=== PATIENT | female | born 1995 | race Hispanic/Latino ===

== ENCOUNTER 2017-09-08 21:46 | Emergency (ER) | payer MEDICAID, OTHER ==
[2017-09-08 21:47] VITALS: BMI 27.4
[2017-09-08 22:07] VITALS: BP 104/63; PULSE 131; TEMP 102.5; O2SAT 97
[2017-09-08] MEDS ORDERED: Promethazine/Cod 6.25mg-10mg/5ml Syr UD PO STA (23:13)
--- NOTE | 2017-09-08 23:26 | C.PDOC ---
History Of Present Illness 21 year old female with PMHx of asthma presents to the ED c/o productive cough, chest discomfort with deep breathing for the past week. Patient also notice fever for the past day. Patient reports she has been using her nebulizer at home with minimum relief. Patient denies rash, nausea, vomit, diarrhea, recent travel, sick contacts. Time Seen by Provider: 09/08/17 22:08 Chief Complaint (Nursing): Flu-like Symptoms History Per: Patient History/Exam Limitations: no limitations Onset/Duration Of Symptoms: Days Current Symptoms Are (Timing): Still Present Location Of Pain: Throat Sick Contacts (Context): None Associated Symptoms: Fever, Sore Throat, Cough, Sputum Ear Symptoms: Bilateral: None Recent travel outside of the [place]: No Additional History Per: Patient Past Medical History Reviewed: Historical Data, Nursing Documentation, Vital Signs Vital Signs: Last Vital Signs Temp 102.5 F H 09/08/17 22:03 Pulse 131 H 09/08/17 22:03 Resp 20 09/08/17 23:58 BP 104/63 09/08/17 22:03 Pulse Ox 97 09/08/17 23:49 - Medical History PMH: Asthma Surgical History: No Surg Hx - [facility] Procedures DELIVERY OF PRODUCTS OF CONCEPTION, EXTERNAL APPROACH (11/21/15) REPAIR PERINEUM SKIN, EXTERNAL APPROACH (11/21/15) Family History: States: Unknown Family Hx - Social History Hx Alcohol Use: No Hx Substance Use: No - Immunization History Hx Tetanus Toxoid Vaccination: No Hx Influenza Vaccination: No Hx Pneumococcal Vaccination: No Review Of Systems Constitutional: Positive for: Fever. Negative for: Chills ENT: Positive for: Nose Congestion, Throat Pain. Negative for: Nose Discharge Cardiovascular: Positive for: Chest Pain Respiratory: Positive for: Cough, Shortness of Breath Gastrointestinal: Negative for: Nausea, Vomiting Skin: Negative for: Rash Physical Exam - Physical Exam Appears: Non-toxic, No Acute Distress Skin: Normal Color, Warm, Dry Head: Atraumatic, Normacephalic Eye(s): bilateral: Normal Inspection, PERRL Ear(s): Bilateral: Normal Nose: No Discharge Oral Mucosa: Moist Throat: Normal, No Erythema, No Exudate Neck: Normal ROM, Supple Chest: Symmetrical, No Tenderness Cardiovascular: Rhythm Regular, No Murmur Respiratory: Normal Breath Sounds, No Rales, No Rhonchi, No Wheezing Extremity: Normal ROM Neurological/Psych: Oriented x3, Normal Motor, Normal Sensation Gait: Steady ED Course And Treatment O2 Sat by Pulse Oximetry: 97 (ON RA) Pulse Ox Interpretation: Normal - Radiology CXR: Interpreted by Me CXR Interpretation: Yes: No Acute Disease. No: Infiltrates Progress Note: Plan: - CXR. - Motrin 600 mg PO. Pt in no resp distress, feels somewhat improved after meds. will d/c with Rx and PMD f/u Reassessment Condition: Improved Disposition - Disposition Referrals: Non [facility] Provider, [Primary Care Provider] - Disposition: HOME/ ROUTINE Disposition Time: 23:48 Condition: STABLE Additional Instructions: Please follow up with PMD or in clinic Return to ER if worse Prescriptions: Albuterol 0.083% [Albuterol 0.083% Inhal Agatha (2.5 mg/3 ml) UD] 2.5 mg IH TID # 100 neb Benzonatate [Tessalon Perles] 100 mg PO TID #20 sgl Cetirizine HCl [Zyrtec] 10 mg PO DAILY #20 capsule predniSONE [Prednisone] 40 mg PO DAILY #10 tab Instructions: Viral Upper Respiratory Infection, Adult (DC) Forms: [employer] (Portuguese) - Clinical Impression Clinical Impression: Influenza-like illness, Influenza - PA / HEALTH SCIENCES PROGRAM COORDINATOR / Resident Statement MD/DO has reviewed & agrees with the documentation as recorded. - Scribe Statement The provider has reviewed the documentation as recorded by the Scribe Alvin Gutierrez All medical record entries made by the Scribe were at my direction and personally dictated by me. I have reviewed the chart and agree that the record accurately reflects my personal performance of the history, physical exam, medical decision making, and the department course for this patient. I have also personally directed, reviewed, and agree with the discharge instructions and disposition.
[2017-09-08] MEDS ORDERED: Promethazine/Cod 6.25mg-10mg/5ml Syr UD ONE (23:27)
[2017-09-08 23:58] VITALS: RESP 20
--- NOTE | 2017-09-09 08:04 | RAD ---
Chest x-ray two views History: Cough. Comparison: None available. Findings: Confluent increased consolidative markings at the left lung base concerning for underlying infiltrate versus atelectasis. Post treatment interval followup is recommended to ensure resolution and exclude underlying lesion. Clinical correlation. Bibasilar breast shadows. Heart size within normal limits. Impression: Confluent increased consolidative markings at the left lung base concerning for underlying infiltrate versus atelectasis. Post treatment interval followup is recommended to ensure resolution and exclude underlying lesion. Clinical correlation.
== END 2017-09-08 23:58 | disposition home or self-care (01) ==
LOC: SUPCPDRO 21:46 → C.ER 21:46
DX: J11.1 Influenza due to unidentified influenza virus with other respiratory manifestations (principal)